=== PATIENT | female | born 1985 | race Two or more races ===

== ENCOUNTER 2018-02-24 15:00 | Emergency (ER) | payer MEDICAID ==
[~2018-02-24] VITALS: Ht 170.2 cm; Wt 142.7 kg
[2018-02-24 16:07] LABS: CULTURE INDICATED? YES; HCG UR SG 1.032 (1.003-1.030); MICROSCOPIC INDICATED
[2018-02-24 16:20] VITALS: BP 127/87
== END 2018-02-24 16:30 | disposition home or self-care (01) ==
LOC: ED 16:00
DX: N30.90 Cystitis, unspecified without hematuria (principal); L72.3 Sebaceous cyst; R30.0 Dysuria
CPT/HCPCS: 81001; 81025; 87077; 87086; 87186; 99284

== ENCOUNTER 2020-05-03 12:55 | Emergency (ER) | payer MEDICAID ==
[~2020-05-03] VITALS: Ht 170.2 cm; Wt 148.9 kg
[2020-05-03 13:02] VITALS: BP 142/72
--- NOTE | 2020-05-03 15:15 | NUR ---
PT CAME OUT OF ROOM ASKING, "HOW LONG IS THIS GOING TO TAKE? I HAVE TO GO [employer]ECT[employer] MY KIDS." INFORMED PT THE ER PA WILL BE IN SOON TO SEE HER. THEN PT LEFT ED (SCREENER IN [facility] SAW HER LEAVE) PRIOR TO BEING SEEN. ER PA NOTIFIED.
== END 2020-05-03 15:26 | disposition left against medical advice (07) ==
LOC: ED 15:20
DX: M25.511 Pain in right shoulder (principal)
CPT/HCPCS: 99283